=== PATIENT | male | born 1955 | race Hispanic/Latino ===

== ENCOUNTER 2021-10-12 03:22 | Emergency (ER) | payer SELFPAY ==
--- NOTE | 2021-10-12 05:00 | XRay Report ---
CHEST 1 VIEW 10/12/2021 3:53 AM INDICATION / CLINICAL INFORMATION: CP + lower extremity pain and weakness. COMPARISON: None available. FINDINGS: SUPPORT DEVICES: None. HEART / MEDIASTINUM: No significant abnormality. LUNGS / PLEURA: No significant pulmonary or pleural abnormality. Small calcified granuloma in the rig ht midlung. No pneumothorax. ADDITIONAL FINDINGS: No significant additional findings. IMPRESSION: 1. No acute findings. Signer Name: Calvin Dennis MD Signed: 10/12/2021 4:56 AM Workstation Name: [id number]
[2021-10-12 05:41] VITALS: BP 148/77
--- NOTE | 2021-10-12 05:59 | Emergency Department Report ---
Stated Complaint: CHEST PAIN Time Seen by Provider: 10/12/21 04:39 - HPI History of Present Illness: 66-year-old male with history of CAD and CVA with right-sided weakness presents complaining of sudden onset mid substernal chest pain and weakness in his legs which started just prior to arrival. The patient states that his "legs gave out". He describes experiencing sudden onset mid substernal chest pain which was nonradiating. He says he was recently hospitalized at another facility and was discharged yesterday with similar symptoms. According to the EMS report, the patient was given aspirin but refused nitro. However, the patient tells me he is allergic to aspirin. He also says he has pain in both of his lower extremities from the waist down which is more significant on the right. He says he is vaccinated against COVID-19. - ROS Review of Systems: Positive for chest pain and bilateral lower extremity pain and weakness. Negative for headache, vision change, shortness of breath, cough, fever, abdominal pain, nausea/vomiting, or any other complaints - Exam Vital Signs: Vital Signs 10/12/21 05:39 Temperature 98.9 F Pulse Rate 90 Respiratory 20 Rate Blood Pressure 148/77 [Left] O2 Sat by Pulse 98 Oximetry Physical Exam: GENERAL: Obese male in no acute distress. Disheveled HEAD: Normocephalic. No obvious signs of trauma. ENT: Dry mucous membranes. EYES: Extraocular movements are intact. Pupils are equal round and reactive to light bilaterally NECK: Supple. Full ROM is intact. Trachea is midline. LUNGS: Nonlabored breathing. Equal chest rise bilaterally. Clear to auscultation bilaterally. CARDIOVASCULAR: Regular rate and rhythm. No murmurs or rubs. VASCULAR: Cap refill < 2 seconds. 2+ peripheral pulses in the bilateral upper e xtremities. 2+ pitting edema bilaterally ABDOMEN: Abdomen is distended with positive fluid wave. There is no significant tenderness, guarding or rebound. SKIN: Skin is warm and dry. There is diffuse xeroderma NEURO: Patient is awake, alert, and oriented. 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 There is weakness of the right lower extremity with very slight drift. The left lower extremity is slightly weak but with no drift. Subjectively decreased sensation noted to the right lower extremity distal to the knee. Otherwise normal motor and sensory exam throughout. Normal speech. MUSCULOSKELETAL: No obvious deformities. No significant tenderness. Normal ROM throughout. BACK/SPINE: No midline tenderness or step-offs of the C/T/L spine. No costovertebral angle tenderness. MSE screening note: Focused history and physical exam performed. Due to findings the following was ordered: EKG, chest x-ray, labs including serial troponins, CTA of the chest/abdomen/pelvis to assess for evidence of aortic dissection versus PE ED Disposition for MSE Condition: Stable Referrals: PRIMARY CARE, [Primary Care Provider] - 3-5 Days
[2021-10-12 06:07] LABS: Basophils # (Auto) 0.1 K/mm3 (0.0-0.1); Basophils % (Auto) 0.8 % (0.0-1.8); Eosinophils # (Auto) 0.2 K/mm3 (0.0-0.4); Eosinophils % (Auto) 2.1 % (0.0-4.3); Hematocrit 41.4 % (35.5-45.6); Hemoglobin 13.6 gm/dl (11.8-15.2); Lymphocytes # (Auto) 2.7 K/mm3 (1.2-5.4); Mean Corpuscular HGB Conc 33 % (32-34); Mean Corpuscular Volume 92 fl (84-94); Monocytes # (Auto) 0.8 K/mm3 (0.0-0.8); Monocytes % (Auto) 7.5 % (0.0-7.3); Platelet Count 218 K/mm3 (140-440); Red Cell Distribution Width 13.4 % (13.2-15.2)
[2021-10-12 06:17] LABS: INR 0.85 (0.87-1.13)
[2021-10-12 06:18] LABS: Partial Thromboplastin Time 31.5 Sec. (24.2-36.6)
[2021-10-12] MEDS ORDERED: HYDROcodone/ACETAMINOPHEN 5-325 MG TAB PO ONE (06:33)
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
[2021-10-12 06:42] LABS: Alanine Aminotransferase 41 units/L (7-56); Albumin 3.7 g/dL (3.9-5); Blood Urea Nitrogen 10 mg/dL (9-20); Calcium 8.6 mg/dL (8.4-10.2); Hemolysis Index 15
[2021-10-12 06:47] LABS: BUN/Creatinine Ratio 14; Bilirubin,Direct < 0.2 mg/dL (0-0.2)
[2021-10-12] MEDS ORDERED: HYDROcodone/ACETAMINOPHEN 5-325 MG TAB PO SCH (09:00)
--- NOTE | 2021-10-12 09:38 | Cat Scan Report ---
CT ANGIOGRAPHY CHEST, ABDOMEN AND PELVIS WITH IV CONTRAST, 10/12/2021 INDICATION: Chest pain. TECHNIQUE: Following the administration of intravenous contrast, multiple axial CT images of the ches t, abdomen and pelvis were acquired. Sagittal and coronal reformats were obtained. All CT performed at this facility utilize dose reduction techniques including automated exposure control, iterative re construction and weight based dosing when appropriate to reduce patient radiation dose to as low as r easonably achievable. COMPARISON: No relevant prior study is available for comparison. FINDINGS: CHEST: Evaluation of the pulmonary arteries demonstrates no central or segmental filling defects to s uggest pulmonary embolism. The heart is normal in size. The thoracic aorta is normal in caliber. Eval uation of the lung parenchyma demonstrates diffuse respiratory artifact. There is no focal airspace d isease or pleural effusion. Abdomen: The abdominal aorta is normal in caliber without evidence for aneurysm or dissection. Proxim al mesenteric branch vessels demonstrate no significant abnormality. The liver, gallbladder, spleen, stomach, pancreas, bilateral adrenal glands and bilateral kidneys shital w no evidence of acute abnormality. There is no evidence of bowel obstruction or free fluid. There is no mesenteric adenopathy. The appendix is visualized and appears normal. Pelvis: There is marked distention of the urinary bladder. The prostate gland is mildly enlarged. The re is no free pelvic fluid. Bones and Soft Tissues: No significant abnormality. There are moderate multilevel degenerative change s throughout the thoracolumbar spine. IMPRESSION: 1. No evidence of pulmonary embolism or aortic dissection. 2. Marked distention of the urinary bladder suggesting bladder outlet obstruction. Signer Name: Tena West MD Signed: 10/12/2021 9:33 AM Workstation Name: [id number]
--- NOTE | 2021-10-12 11:23 | Cat Scan Report ---
Please see CTA of the chest, abdomen and pelvis performed the same day. Signer Name: Tena West MD Signed: 10/12/2021 11:19 AM Workstation Name: [id number]
[2021-10-12] MEDS ORDERED: CLOPIDOGREL 300 MG TAB PO ONE ×2 (11:30→14:30)
[2021-10-12] MEDS ORDERED: NITROGLYCERIN 2% OINT 1 GM TP ONE (12:28)
--- NOTE | 2021-10-12 13:35 | Consultation ---
History of Present Illness Consult date: 10/12/21 Requesting physician: ANA LAURA BELCHER Consult reason: chest pain Past History Past Medical History: hypertension Social history: alcohol abuse (occasional). denies: smoking Family history: no significant family history Medications and Allergies Allergies Allergy/AdvReac Type Severity Reaction Status Date / Time No Known Allergies Allergy Unverified 10/12/21 06:09 Physical Examination Vital Signs Temp Pulse Resp BP Pulse Ox 98.9 F 90 20 148/77 98 10/12/21 05:39 10/12/21 05:39 10/12/21 05:39 10/12/21 05:39 10/12/21 05:39 Results 10/12/21 05:09 10/12/21 05:09 Cardiac Enzymes 10/12/21 Range/Units 05:09 AST 48 H (5-40) units/L Coagulation 10/12/21 Range/Units 05:09 PT 12.6 (12.2-14.9) Sec. INR 0.85 L (0.87-1.13) APTT 31.5 (24.2-36.6) Sec. CBC 10/12/21 Range/Units 05:09 WBC 10.2 (4.5-11.0) K/mm3 RBC 4.50 (3.65-5.03) M/mm3 Hgb 13.6 (11.8-15.2) gm/dl Hct 41.4 (35.5-45.6) % Plt Count 218 (140-440) K/mm3 Lymph # (Auto) 2.7 (1.2-5.4) K/mm3 [place] # (Auto) 0.8 (0.0-0.8) K/mm3 Eos # (Auto) 0.2 (0.0-0.4) K/mm3 Baso # (Auto) 0.1 (0.0-0.1) K/mm3 Comprehensive Metabolic Panel 10/12/21 Range/Units 05:09 Sodium 139 (137-145) mmol/L Potassium 4.0 (3.6-5.0) mmol/L Chloride 100.5 (98-107) mmol/L Carbon Dioxide 23 (22-30) mmol/L BUN 10 (9-20) mg/dL Creatinine 0.7 L (0.8-1.3) mg/dL Glucose 114 H (75-100) mg/dL Calcium 8.6 (8.4-10.2) mg/dL Direct Bilirubin < 0.2 (0-0.2) mg/dL Indirect Bilirubin 0.1 mg/dL AST 48 H (5-40) units/L ALT 41 (7-56) units/L Alkaline Phosphatase 99 (35-129) units/L Total Protein 7.6 (6.3-8.2) g/dL Albumin 3.7 L (3.9-5) g/dL Assessment and Plan - Patient Problems (1) Chest pain Current Visit: Yes Status: Acute
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
--- NOTE | 2021-10-15 09:17 | Electrocardiograph Report ---
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
== END 2021-10-12 17:00 | disposition admitted as inpatient to this hospital (09) ==
LOC: ED 03:22
DX: R07.89 Other chest pain (principal); M79.604 Pain in right leg; M79.605 Pain in left leg; I10 Essential (primary) hypertension; Z72.89 Other problems related to lifestyle
CPT/HCPCS: 36415; 71045; 71275; 74174; 80048; 80076; 82550; 83690; 83735; 83880; 84484; 85025; 85610; 85730; 93005; Q9967; 80320; G0480